=== PATIENT | male | born 1965 | race African-American/Black ===

== ENCOUNTER 2018-12-07 02:56 | Inpatient (IN) | payer MEDICAID ==
[~2018-12-07] VITALS: Ht 172.7 cm; Wt 92.7 kg
[2018-12-07] MEDS ORDERED: ONDANSETRON HCL 4MG/2ML INJ IV STA (03:09)
[2018-12-07] MEDS ORDERED: SODIUM CHLORIDE 0.9% 1,000 ML IV ONE (03:09)
[2018-12-07] MEDS ORDERED: MAGNESIUM/ALUMINUM HYDROXIDE/SIMETHICONE 30ML UDC PO STA (03:09)
[2018-12-07 03:27] LABS: BASOPHILS % 0.4 % (0.0-2.0); EOSINOPHILS % 2.7 % (0.0-5.0); HEMATOCRIT. 33.9 % (42.0-52.0); HEMOGLOBIN. 11.3 g/dL (14.0-18.0); LYMPHOCYTES % 33.4 % (20.0-50.0); MEAN CORPUSCULAR HEMOGLOBIN 27.8 pg (28.0-32.0); MEAN CORPUSCULAR VOLUME 83.9 fL (80.0-94.0); MEAN PLATELET VOLUME 7.3 fl (7.4-10.4); MONOCYTES % 7.2 % (2.0-8.0); NEUTROPHILS % 56.3 % (40.0-76.0); PLATELET 178 x1000/uL (130-400); RED BLOOD CELL COUNT 4.04 mill/uL (4.7-6.1); RED CELL DISTRIBUTION WIDTH 17.4 % (11.6-14.6)
[2018-12-07 03:34] LABS: CHLORIDE 104 mEq/L (98-107)
[2018-12-07 03:36] LABS: INR 1.1; PROTHROMBIN TIME 11.4 sec (9.6-11.0)
[2018-12-07 03:38] LABS: ETHANOL BLOOD 232 mg/dL
[2018-12-07] MEDS ORDERED: KETOROLAC 15MG/ML VIAL IV ONE (03:45)
[2018-12-07] MEDS ORDERED: LORAZEPAM 1MG TABLET PO ONE (04:45)
[2018-12-07] MEDS ORDERED: MORPHINE SULFATE 4 MG/ML CPJ (NOT FOR IM USE) IV ONE (05:15)
[2018-12-07] MEDS ORDERED: DEXT 5%/0.45% NACL 1000ML 1,000 ML IV SCH ×2 (07:21→09:30)
[2018-12-07] MEDS ORDERED: CLONIDINE 0.1MG TABLET PO PRN ×2 (07:30→09:30)
[2018-12-07] MEDS ORDERED: LORAZEPAM 2MG/ML CPJ IV PRN (07:30)
[2018-12-07] MEDS ORDERED: ONDANSETRON HCL 4MG/2ML INJ IV PRN (07:30)
[2018-12-07] MEDS ORDERED: ACETAMINOPHEN 325MG TABLET PO PRN (07:30)
[2018-12-07 07:39] LABS: CLARITY URINE CLEAR (CLEAR); COLOR URINE YELLOW (YELLOW); KETONES URINE NEGATIVE (NEGATIVE); LEUKOCYTE ESTERASE URINE NEGATIVE (NEGATIVE); NITRITE URINE NEGATIVE (NEGATIVE); OCCULT BLOOD URINE NEGATIVE (NEGATIVE); PROTEIN URINE NEGATIVE (NEGATIVE); SPECIFIC GRAVITY URINE 1.017 (1.005-1.030); UROBILINOGEN URINE 0.2 E.U./dL (0.2-1.0)
[2018-12-07] MEDS ORDERED: FOLIC ACID 1MG TABLET PO SCH (09:00)
[2018-12-07] MEDS ORDERED: MULTIVITAMINS,THER W-MINERALS TABLET PO SCH (09:00)
[2018-12-07] MEDS ORDERED: THIAMINE HCL 100MG TABLET PO SCH (09:00)
[2018-12-07] MEDS: HYDROMORPHONE HCL/PF 2MG/ML CPJ IV PRN ×3 (10:11→17:28)
[2018-12-07] MEDS: THIAMINE HCL 100MG TABLET PO SCH (10:12)
[2018-12-07] MEDS: FOLIC ACID 1MG TABLET PO SCH (10:12)
[2018-12-07] MEDS: MULTIVITAMINS,THER W-MINERALS TABLET PO SCH (10:12)
[2018-12-07 10:31] VITALS: BP 124/89
[2018-12-07 11:00] VITALS: BP_SYST 124; BP_SYST 143; BP_DIAS 64; BP_DIAS 92
[2018-12-07] MEDS: DEXT 5%/0.45% NACL KCL 20MEQ/L 1,000 ML IV SCH (11:47)
[2018-12-07 12:24] VITALS: BP 143/64
[2018-12-07] MEDS: CHLORDIAZEPOXIDE 25MG CAPSULE PO SCH ×2 (13:21→23:59)
[2018-12-07] MEDS: ACETAMINOPHEN 325MG TABLET PO PRN (15:33)
[2018-12-07 15:51] VITALS: BP 115/84
[2018-12-07 20:00] VITALS: BP 125/74
[2018-12-07] MEDS ORDERED: POTASSIUM CHLORIDE 20MEQ TABLET SR PO NR (20:45)
[2018-12-07] MEDS: ONDANSETRON HCL 4MG/2ML INJ IV PRN (22:20)
[2018-12-07] MEDS: LORAZEPAM 2MG/ML CPJ IV PRN (22:21)
[2018-12-08] VITALS: BP 123/71
[2018-12-08] MEDS: DEXT 5%/0.45% NACL KCL 20MEQ/L 1,000 ML IV SCH ×2 (02:01→13:26)
[2018-12-08] MEDS: HYDROMORPHONE HCL/PF 2MG/ML CPJ IV PRN ×4 (02:31→15:48)
[2018-12-08 04:00] VITALS: BP 123/85
[2018-12-08] MEDS: CHLORDIAZEPOXIDE 25MG CAPSULE PO SCH ×3 (06:33→22:22)
[2018-12-08 08:00] VITALS: BP 113/91
[2018-12-08] MEDS: THIAMINE HCL 100MG TABLET PO SCH (08:05)
[2018-12-08] MEDS: FOLIC ACID 1MG TABLET PO SCH (08:05)
[2018-12-08] MEDS: MULTIVITAMINS,THER W-MINERALS TABLET PO SCH (08:05)
[2018-12-08] MEDS ORDERED: ASPI-986 MT (09:17)
[2018-12-08] MEDS: ACETAMINOPHEN 325MG TABLET PO PRN (10:23)
[2018-12-08 12:00] VITALS: BP 125/96
[2018-12-08 12:42] LABS: CHLORIDE 101 mEq/L (98-107)
[2018-12-08] MEDS ORDERED: DEXT 5%/0.45% NACL 1000ML 1,000 ML IV SCH (13:33)
[2018-12-08] MEDS ORDERED: SODIUM POLYSTYRENE SULFONATE 15 G/60 ML BOT PO NR (14:30)
[2018-12-08 16:45] VITALS: BP 125/82
[2018-12-08 19:54] VITALS: BP 112/82
[2018-12-09] VITALS (8 sets, daily range): BP systolic 113–138; BP diastolic 67–99
[2018-12-09] MEDS: ONDANSETRON HCL 4MG/2ML INJ IV PRN ×2 (01:31→12:49)
[2018-12-09] MEDS: HYDROMORPHONE HCL/PF 2MG/ML CPJ IV PRN ×2 (04:43→12:49)
[2018-12-09] MEDS: CHLORDIAZEPOXIDE 25MG CAPSULE PO SCH ×3 (07:20→21:56)
[2018-12-09] MEDS: FOLIC ACID 1MG TABLET PO SCH (08:51)
[2018-12-09] MEDS: THIAMINE HCL 100MG TABLET PO SCH (08:52)
[2018-12-09] MEDS: MULTIVITAMINS,THER W-MINERALS TABLET PO SCH (08:52)
[2018-12-09] MEDS: SODIUM CHLORIDE 0.9% 1,000 ML IV SCH ×2 (12:37→18:45)
[2018-12-09] MEDS ORDERED: CHLORPROMAZINE HCL 25 MG TABLET PO PRN (12:45)
[2018-12-09] MEDS ORDERED: FUROSEMIDE 20MG/2ML VIAL IVP NR (17:15)
[2018-12-09 19:17] LABS: HEMOGLOBIN. 11.7 g/dL (14.0-18.0); MEAN CORPUSCULAR HEMOGLOBIN 28.1 pg (28.0-32.0); MEAN CORPUSCULAR VOLUME 83.9 fL (80.0-94.0); MEAN PLATELET VOLUME 8.3 fl (7.4-10.4); PLATELET 116 x1000/uL (130-400); RED BLOOD CELL COUNT 4.18 mill/uL (4.7-6.1); RED CELL DISTRIBUTION WIDTH 17.9 % (11.6-14.6)
[2018-12-09 20:47] LABS: NUCLEATED RED BLOOD CELLS 2 /100 WBC
[2018-12-09 20:49] LABS: PLATELET ESTIMATE SLIGHTLY DECREASED
[2018-12-09 20:56] LABS: BG BASE EXCESS -4.6 mmol/L (-2.0-2.0); BG CARBOXYHEMOGLOBIN 1.1 % (0.5-1.5); BG DEOXYHEMOGLOBIN 10.2 % (0.0-5.0); BG FRACTION INSPIRED OXYGEN 21; BG HCO3 ACT 18.9 mmol/L (22.0-26.0); BG METHEMOGLOBIN 0.3 % (0.0-1.5); BG OXYGEN SATURATION 89.7 % (92.0-98.5); BG OXYHEMOGLOBIN 88.4 % (94.0-97.0); BG PCO2 30.4 mmHg (35.0-45.0); BG PH 7.412 (7.350-7.450); BG PO2 56.9 mmHg (75.0-100.0); BG SAMPLE SITE RIGHT RADIAL; BG TOTAL HEMOGLOBIN 12.2 g/dL (12.0-18.0); BG VENT MODE ROOM AIR
[2018-12-09] MEDS ORDERED: FOLIC ACID 1 MG, THIAMINE HCL 100 MG, MVI, ADULT NO.1 10 ML in DEXTROSE 5% WATER 1,000 ML IV ONE ×4 (21:00)
[2018-12-10] VITALS (25 sets, daily range): BP systolic 110–154; BP diastolic 65–104
[2018-12-10] MEDS: HYDROMORPHONE HCL/PF 2MG/ML CPJ IV PRN ×5 (03:40→21:55)
[2018-12-10 05:50] LABS: HEMATOCRIT. 30.6 % (42.0-52.0); HEMOGLOBIN. 10.3 g/dL (14.0-18.0); MEAN CORPUSCULAR HEMOGLOBIN 28.3 pg (28.0-32.0); MEAN CORPUSCULAR VOLUME 84.2 fL (80.0-94.0); MEAN PLATELET VOLUME 8.6 fl (7.4-10.4); PLATELET 115 x1000/uL (130-400); RED BLOOD CELL COUNT 3.64 mill/uL (4.7-6.1); RED CELL DISTRIBUTION WIDTH 17.3 % (11.6-14.6)
[2018-12-10] MEDS: CHLORDIAZEPOXIDE 25MG CAPSULE PO SCH ×3 (06:52→21:51)
[2018-12-10 06:57] LABS: CHLORIDE 101 mEq/L (98-107)
[2018-12-10] MEDS ORDERED: POTASSIUM CHLORIDE 20MEQ/PACKET PO NR (09:45)
[2018-12-10] MEDS ORDERED: POTASSIUM CHLORIDE 20MEQ TABLET SR PO NR (09:45)
[2018-12-10] MEDS ORDERED: POTASSIUM CHLORIDE INJ 40 MEQ in DEXT 5% WATER 250 ML IV ONE (09:45)
[2018-12-10 09:59] LABS: PHOSPHORUS 2.1 mg/dL (2.5-4.9)
[2018-12-10] MEDS: ONDANSETRON HCL 4MG/2ML INJ IV PRN (10:20)
[2018-12-10] MEDS: SODIUM CHLORIDE 0.9% 1,000 ML IV SCH ×2 (10:20→11:30)
[2018-12-10] MEDS: MULTIVITAMINS,THER W-MINERALS TABLET PO SCH (10:21)
[2018-12-10] MEDS: FOLIC ACID 1MG TABLET PO SCH (10:21)
[2018-12-10] MEDS: THIAMINE HCL 100MG TABLET PO SCH (10:21)
[2018-12-10] MEDS ORDERED: POTASSIUM-SODIUM PHOSPHATE POWDER PACKET PO SCH (12:00)
[2018-12-10 13:26] LABS: NUCLEATED RED BLOOD CELLS 1 /100 WBC; PLATELET ESTIMATE SLIGHTLY DECREASED
[2018-12-10] MEDS: LORAZEPAM 2MG/ML CPJ IV PRN (16:25)
[2018-12-10] MEDS: NICOTINE 21MG PATCH TD SCH (18:57)
[2018-12-11] VITALS (22 sets, daily range): BP systolic 110–143; BP diastolic 64–98
[2018-12-11] MEDS: SODIUM CHLORIDE 0.9% 1,000 ML IV SCH ×2 (01:03→14:11)
[2018-12-11] MEDS: HYDROMORPHONE HCL/PF 2MG/ML CPJ IV PRN ×2 (03:13→11:10)
[2018-12-11] MEDS: CHLORDIAZEPOXIDE 25MG CAPSULE PO SCH ×3 (06:21→21:24)
[2018-12-11 06:52] LABS: HEMATOCRIT. 30.4 % (42.0-52.0); HEMOGLOBIN. 10.1 g/dL (14.0-18.0); MEAN CORPUSCULAR HEMOGLOBIN 28.4 pg (28.0-32.0); MEAN CORPUSCULAR VOLUME 85.6 fL (80.0-94.0); MEAN PLATELET VOLUME 7.9 fl (7.4-10.4); PLATELET 127 x1000/uL (130-400); RED BLOOD CELL COUNT 3.55 mill/uL (4.7-6.1); RED CELL DISTRIBUTION WIDTH 17.6 % (11.6-14.6)
[2018-12-11 07:46] LABS: CHLORIDE 104 mEq/L (98-107)
[2018-12-11 08:01] LABS: PHOSPHORUS 2.2 mg/dL (2.5-4.9)
[2018-12-11 08:04] LABS: NUCLEATED RED BLOOD CELLS 2 /100 WBC
[2018-12-11 08:05] LABS: PLATELET ESTIMATE NORMAL
[2018-12-11] MEDS: NICOTINE 21MG PATCH TD SCH (09:00)
[2018-12-11] MEDS: THIAMINE HCL 100MG TABLET PO SCH (09:50)
[2018-12-11] MEDS: MULTIVITAMINS,THER W-MINERALS TABLET PO SCH (09:50)
[2018-12-11] MEDS: FOLIC ACID 1MG TABLET PO SCH (09:50)
[2018-12-11] MEDS ORDERED: NITROGLYCERIN 0.4MG TABLET SL SL ONE (12:57)
[2018-12-11] MEDS ORDERED: NITROGLYCERIN 0.4MG TABLET SL SL PRN (13:00)
[2018-12-11] MEDS: POTASSIUM-SODIUM PHOSPHATE POWDER PACKET PO SCH (16:58)
[2018-12-11] MEDS: TRAMADOL 50MG TABLET PO PRN (22:50)
[2018-12-11] MEDS: LORAZEPAM 2MG/ML CPJ IV PRN (23:49)
[2018-12-12] VITALS (18 sets, daily range): BP systolic 118–154; BP diastolic 76–90
[2018-12-12] MEDS: SODIUM CHLORIDE 0.9% 1,000 ML IV SCH (03:47)
[2018-12-12] MEDS: CHLORDIAZEPOXIDE 25MG CAPSULE PO SCH ×3 (06:08→21:29)
[2018-12-12 06:21] LABS: HEMATOCRIT. 26.6 % (42.0-52.0); HEMOGLOBIN. 8.9 g/dL (14.0-18.0); MEAN CORPUSCULAR HEMOGLOBIN 28.5 pg (28.0-32.0); MEAN CORPUSCULAR VOLUME 85.1 fL (80.0-94.0); MEAN PLATELET VOLUME 7.7 fl (7.4-10.4); PLATELET 150 x1000/uL (130-400); RED BLOOD CELL COUNT 3.13 mill/uL (4.7-6.1); RED CELL DISTRIBUTION WIDTH 18.1 % (11.6-14.6)
[2018-12-12 06:52] LABS: CHLORIDE 105 mEq/L (98-107)
[2018-12-12] MEDS ORDERED: POTASSIUM CHLORIDE 20MEQ TABLET SR PO SCH (07:30)
[2018-12-12] MEDS: MULTIVITAMINS,THER W-MINERALS TABLET PO SCH (07:47)
[2018-12-12] MEDS: THIAMINE HCL 100MG TABLET PO SCH (07:47)
[2018-12-12] MEDS: POTASSIUM-SODIUM PHOSPHATE POWDER PACKET PO SCH ×2 (07:47→17:32)
[2018-12-12] MEDS: FOLIC ACID 1MG TABLET PO SCH (07:47)
[2018-12-12] MEDS: TRAMADOL 50MG TABLET PO PRN ×2 (07:48→21:09)
[2018-12-12] MEDS: NICOTINE 21MG PATCH TD SCH (08:10)
[2018-12-12 10:39] LABS: PLATELET ESTIMATE NORMAL
[2018-12-13] VITALS: BP 129/81
[2018-12-13 04:00] VITALS: BP 125/82
[2018-12-13] MEDS: TRAMADOL 50MG TABLET PO PRN ×2 (04:19→08:31)
[2018-12-13 07:46] LABS: HEMATOCRIT. 26.6 % (42.0-52.0); HEMOGLOBIN. 9.1 g/dL (14.0-18.0); MEAN CORPUSCULAR HEMOGLOBIN 29.5 pg (28.0-32.0); MEAN CORPUSCULAR VOLUME 85.8 fL (80.0-94.0); MEAN PLATELET VOLUME 7.9 fl (7.4-10.4); PLATELET 211 x1000/uL (130-400); RED CELL DISTRIBUTION WIDTH 18.8 % (11.6-14.6)
[2018-12-13 07:57] LABS: CHLORIDE 104 mEq/L (98-107)
[2018-12-13 08:00] VITALS: BP 112/77
[2018-12-13 08:02] LABS: PHOSPHORUS 2.9 mg/dL (2.5-4.9)
[2018-12-13] MEDS: CHLORDIAZEPOXIDE 25MG CAPSULE PO SCH (08:30)
[2018-12-13] MEDS: NICOTINE 21MG PATCH TD SCH (08:30)
[2018-12-13] MEDS: THIAMINE HCL 100MG TABLET PO SCH (08:30)
[2018-12-13] MEDS: POTASSIUM-SODIUM PHOSPHATE POWDER PACKET PO SCH ×2 (08:30→16:11)
[2018-12-13] MEDS: MULTIVITAMINS,THER W-MINERALS TABLET PO SCH (08:31)
[2018-12-13] MEDS: FOLIC ACID 1MG TABLET PO SCH (08:31)
[2018-12-13 10:01] LABS: PLATELET ESTIMATE NORMAL
[2018-12-13 12:00] VITALS: BP 122/80
[2018-12-13] MEDS: HYDROCODONE/APAP 7.5/325MG 1 TAB TABLET PO PRN ×2 (12:25→18:25)
[2018-12-13 16:00] VITALS: BP_SYST 111; BP_SYST 122; BP_DIAS 71; BP_DIAS 80
[2018-12-13] MEDS: ONDANSETRON HCL 4MG/2ML INJ IV PRN (18:22)
[2018-12-13 20:00] VITALS: BP 107/81
[2018-12-13] MEDS ORDERED: CHLORDIAZEPOXIDE 25MG CAPSULE PO SCH (22:00)
[2018-12-14] VITALS: BP 132/83
[2018-12-14] MEDS: HYDROCODONE/ACETAMINOPHEN 5/325MG TABLET PO PRN ×5 (01:32→22:06)
[2018-12-14] MEDS: IPRATROPIUM/ALBUTEROL 0.5-3(2.5)MG/3ML NEB HHN PRN ×6 (01:35→21:15)
[2018-12-14 04:00] VITALS: BP 114/75
[2018-12-14 08:00] VITALS: BP 119/80
[2018-12-14] MEDS: GUAIFENESIN/DM 600MG/30MG ER TAB 12HR PO SCH ×2 (08:58→22:01)
[2018-12-14] MEDS: NICOTINE 21MG PATCH TD SCH (08:59)
[2018-12-14] MEDS: POTASSIUM-SODIUM PHOSPHATE POWDER PACKET PO SCH ×2 (08:59→16:17)
[2018-12-14] MEDS: CHLORDIAZEPOXIDE 25MG CAPSULE PO SCH (08:59)
[2018-12-14] MEDS: FOLIC ACID 1MG TABLET PO SCH (08:59)
[2018-12-14] MEDS: THIAMINE HCL 100MG TABLET PO SCH (08:59)
[2018-12-14] MEDS: MULTIVITAMINS,THER W-MINERALS TABLET PO SCH (08:59)
[2018-12-14 12:00] VITALS: BP 117/81
[2018-12-14 16:00] VITALS: BP 125/76
[2018-12-14] MEDS: ACETAMINOPHEN 325MG TABLET PO PRN (16:17)
[2018-12-14 20:00] VITALS: BP 118/77
[2018-12-15] VITALS: BP 103/68
[2018-12-15] MEDS: IPRATROPIUM/ALBUTEROL 0.5-3(2.5)MG/3ML NEB HHN PRN ×2 (02:09→06:48)
[2018-12-15] MEDS: HYDROCODONE/ACETAMINOPHEN 5/325MG TABLET PO PRN ×4 (02:24→19:49)
[2018-12-15 04:00] VITALS: BP 117/72
[2018-12-15 08:00] VITALS: BP 115/78
[2018-12-15] MEDS: MULTIVITAMINS,THER W-MINERALS TABLET PO SCH (08:04)
[2018-12-15] MEDS: POTASSIUM-SODIUM PHOSPHATE POWDER PACKET PO SCH ×2 (08:04→17:37)
[2018-12-15] MEDS: CHLORDIAZEPOXIDE 25MG CAPSULE PO SCH (08:04)
[2018-12-15] MEDS: GUAIFENESIN/DM 600MG/30MG ER TAB 12HR PO SCH ×2 (08:04→20:37)
[2018-12-15] MEDS: NICOTINE 21MG PATCH TD SCH (08:04)
[2018-12-15] MEDS: FOLIC ACID 1MG TABLET PO SCH (08:04)
[2018-12-15] MEDS: THIAMINE HCL 100MG TABLET PO SCH (08:05)
[2018-12-15 12:28] VITALS: BP 107/73
[2018-12-15 15:51] VITALS: BP 119/80
[2018-12-15 20:00] VITALS: BP 118/79
[2018-12-16] VITALS: BP 116/78
[2018-12-16] MEDS: HYDROCODONE/APAP 7.5/325MG 1 TAB TABLET PO PRN ×2 (00:27→09:40)
[2018-12-16] MEDS: IPRATROPIUM/ALBUTEROL 0.5-3(2.5)MG/3ML NEB HHN PRN ×2 (01:06→05:12)
[2018-12-16 04:00] VITALS: BP 123/77
[2018-12-16 08:00] VITALS: BP 129/77
[2018-12-16] MEDS: THIAMINE HCL 100MG TABLET PO SCH (08:22)
[2018-12-16] MEDS: POTASSIUM-SODIUM PHOSPHATE POWDER PACKET PO SCH ×2 (08:22→17:30)
[2018-12-16] MEDS: MULTIVITAMINS,THER W-MINERALS TABLET PO SCH (08:22)
[2018-12-16] MEDS: FOLIC ACID 1MG TABLET PO SCH (08:22)
[2018-12-16] MEDS: CHLORDIAZEPOXIDE 25MG CAPSULE PO SCH (08:22)
[2018-12-16] MEDS: GUAIFENESIN/DM 600MG/30MG ER TAB 12HR PO SCH ×2 (08:22→20:14)
[2018-12-16] MEDS: NICOTINE 21MG PATCH TD SCH (08:24)
[2018-12-16 12:00] VITALS: BP 114/73
[2018-12-16] MEDS: HYDROCODONE/ACETAMINOPHEN 5/325MG TABLET PO PRN ×2 (13:59→20:14)
[2018-12-16] MEDS: IPRATROPIUM/ALBUTEROL 0.5-3(2.5)MG/3ML NEB HHN SCH ×2 (16:42→21:25)
[2018-12-16] MEDS: LACTULOSE 20G/30ML UDC PO SCH (17:30)
[2018-12-16 20:00] VITALS: BP 120/93
[2018-12-17] VITALS: BP_SYST 113; BP_SYST 123; BP_DIAS 72; BP_DIAS 79
[2018-12-17] MEDS: HYDROCODONE/APAP 7.5/325MG 1 TAB TABLET PO PRN ×2 (00:19→06:49)
[2018-12-17] MEDS: IPRATROPIUM/ALBUTEROL 0.5-3(2.5)MG/3ML NEB HHN SCH ×6 (01:45→20:25)
[2018-12-17 04:00] VITALS: BP 118/80
[2018-12-17 08:00] VITALS: BP 118/79
[2018-12-17] MEDS: LACTULOSE 20G/30ML UDC PO SCH ×2 (09:17→17:05)
[2018-12-17] MEDS: POTASSIUM-SODIUM PHOSPHATE POWDER PACKET PO SCH ×2 (09:17→17:07)
[2018-12-17] MEDS: MULTIVITAMINS,THER W-MINERALS TABLET PO SCH (09:18)
[2018-12-17] MEDS: FOLIC ACID 1MG TABLET PO SCH (09:18)
[2018-12-17] MEDS: CHLORDIAZEPOXIDE 25MG CAPSULE PO SCH (09:18)
[2018-12-17] MEDS: NICOTINE 21MG PATCH TD SCH (09:18)
[2018-12-17] MEDS: POLYETHYLENE GLYCOL 3350 (17GM) 1 DOSE PACK PO SCH (09:18)
[2018-12-17] MEDS: GUAIFENESIN/DM 600MG/30MG ER TAB 12HR PO SCH ×2 (09:18→21:13)
[2018-12-17] MEDS: THIAMINE HCL 100MG TABLET PO SCH (09:18)
[2018-12-17] MEDS ORDERED: BENZONATATE 100MG CAPSULE PO PRN (11:00)
[2018-12-17 12:00] VITALS: BP 114/82
[2018-12-17] MEDS: ACETAMINOPHEN 325MG TABLET PO PRN (15:43)
[2018-12-17] MEDS ORDERED: NA PHOS,M-B/NA PHOS,DI-BA ENEMA 118ML PR PRN (15:45)
[2018-12-17 16:00] VITALS: BP 123/85
[2018-12-17 20:00] VITALS: BP 106/79
[2018-12-17] MEDS: HYDROCODONE/ACETAMINOPHEN 5/325MG TABLET PO PRN (22:07)
[2018-12-17] MEDS: ONDANSETRON HCL 4MG/2ML INJ IV PRN (22:08)
[2018-12-18] VITALS: BP 126/80
[2018-12-18] MEDS: HYDROCODONE/ACETAMINOPHEN 5/325MG TABLET PO PRN ×3 (02:10→18:58)
[2018-12-18] MEDS: IPRATROPIUM/ALBUTEROL 0.5-3(2.5)MG/3ML NEB HHN SCH ×6 (02:27→19:58)
[2018-12-18 04:00] VITALS: BP 106/68
[2018-12-18] MEDS: ACETAMINOPHEN 325MG TABLET PO PRN (06:53)
[2018-12-18 08:00] VITALS: BP 109/70
[2018-12-18] MEDS: FOLIC ACID 1MG TABLET PO SCH (08:42)
[2018-12-18] MEDS: MULTIVITAMINS,THER W-MINERALS TABLET PO SCH (08:42)
[2018-12-18] MEDS: CHLORDIAZEPOXIDE 25MG CAPSULE PO SCH (08:42)
[2018-12-18] MEDS: THIAMINE HCL 100MG TABLET PO SCH (08:42)
[2018-12-18] MEDS: NICOTINE 21MG PATCH TD SCH (08:43)
[2018-12-18] MEDS: LACTULOSE 20G/30ML UDC PO SCH ×2 (08:43→17:26)
[2018-12-18] MEDS: POTASSIUM-SODIUM PHOSPHATE POWDER PACKET PO SCH ×2 (08:43→17:26)
[2018-12-18] MEDS: GUAIFENESIN/DM 600MG/30MG ER TAB 12HR PO SCH (09:01)
[2018-12-18] MEDS: POLYETHYLENE GLYCOL 3350 (17GM) 1 DOSE PACK PO SCH (09:01)
[2018-12-18] MEDS: HYDROCODONE/APAP 7.5/325MG 1 TAB TABLET PO PRN (09:04)
[2018-12-18 12:00] VITALS: BP 106/77
[2018-12-18 16:00] VITALS: BP 116/55
[2018-12-18 20:00] VITALS: BP 111/83
[2018-12-19] VITALS: BP 124/85
[2018-12-19] MEDS: GUAIFENESIN/DM 600MG/30MG ER TAB 12HR PO SCH ×3 (00:04→20:57)
[2018-12-19] MEDS: IPRATROPIUM/ALBUTEROL 0.5-3(2.5)MG/3ML NEB HHN SCH ×6 (00:16→21:54)
[2018-12-19] MEDS: ACETAMINOPHEN 325MG TABLET PO PRN ×4 (01:34→20:15)
[2018-12-19 04:00] VITALS: BP 108/76
[2018-12-19 08:00] VITALS: BP 122/84
[2018-12-19] MEDS: LACTULOSE 20G/30ML UDC PO SCH ×2 (08:08→17:00)
[2018-12-19] MEDS: POLYETHYLENE GLYCOL 3350 (17GM) 1 DOSE PACK PO SCH (08:08)
[2018-12-19] MEDS: THIAMINE HCL 100MG TABLET PO SCH (08:09)
[2018-12-19] MEDS: MULTIVITAMINS,THER W-MINERALS TABLET PO SCH (08:09)
[2018-12-19] MEDS: FOLIC ACID 1MG TABLET PO SCH (08:09)
[2018-12-19] MEDS: NICOTINE 21MG PATCH TD SCH (08:14)
[2018-12-19] MEDS: POTASSIUM-SODIUM PHOSPHATE POWDER PACKET PO SCH ×2 (08:14→17:24)
[2018-12-19 12:00] VITALS: BP 113/81
[2018-12-19 16:00] VITALS: BP 121/82
[2018-12-19 20:00] VITALS: BP 138/83
[2018-12-20] VITALS: BP 119/98
[2018-12-20] MEDS: HYDROCODONE/ACETAMINOPHEN 5/325MG TABLET PO PRN ×5 (00:14→22:27)
[2018-12-20] MEDS: ZOLPIDEM TARTRATE 5MG TABLET PO PRN ×2 (00:23→20:12)
[2018-12-20] MEDS: IPRATROPIUM/ALBUTEROL 0.5-3(2.5)MG/3ML NEB HHN SCH ×6 (01:31→20:49)
[2018-12-20 04:00] VITALS: BP 108/83
[2018-12-20] MEDS: ACETAMINOPHEN 325MG TABLET PO PRN ×3 (05:35→20:13)
[2018-12-20 08:00] VITALS: BP 123/78
[2018-12-20] MEDS: LACTULOSE 20G/30ML UDC PO SCH ×2 (09:00→17:40)
[2018-12-20] MEDS: THIAMINE HCL 100MG TABLET PO SCH (09:15)
[2018-12-20] MEDS: GUAIFENESIN/DM 600MG/30MG ER TAB 12HR PO SCH ×2 (09:15→20:12)
[2018-12-20] MEDS: FOLIC ACID 1MG TABLET PO SCH (09:15)
[2018-12-20] MEDS: MULTIVITAMINS,THER W-MINERALS TABLET PO SCH (09:15)
[2018-12-20] MEDS: POTASSIUM-SODIUM PHOSPHATE POWDER PACKET PO SCH ×2 (09:16→17:40)
[2018-12-20] MEDS: POLYETHYLENE GLYCOL 3350 (17GM) 1 DOSE PACK PO SCH (09:16)
[2018-12-20] MEDS: NICOTINE 21MG PATCH TD SCH (09:16)
[2018-12-20 11:14] LABS: BASOPHILS % 0.6 % (0.0-2.0); EOSINOPHILS % 0.4 % (0.0-5.0); HEMOGLOBIN. 7.6 g/dL (14.0-18.0); LYMPHOCYTES % 11.9 % (20.0-50.0); MEAN CORPUSCULAR HEMOGLOBIN 27.9 pg (28.0-32.0); MEAN CORPUSCULAR VOLUME 84.9 fL (80.0-94.0); MEAN PLATELET VOLUME 7.2 fl (7.4-10.4); MONOCYTES % 10.2 % (2.0-8.0); NEUTROPHILS % 76.9 % (40.0-76.0); PLATELET 742 x1000/uL (130-400); RED BLOOD CELL COUNT 2.71 mill/uL (4.7-6.1)
[2018-12-20 11:20] LABS: CHLORIDE 100 mEq/L (98-107)
[2018-12-20 16:00] VITALS: BP 120/81
[2018-12-20 20:27] VITALS: BP 128/88
[2018-12-21 00:22] VITALS: BP 132/83
[2018-12-21] MEDS: IPRATROPIUM/ALBUTEROL 0.5-3(2.5)MG/3ML NEB HHN SCH ×6 (00:54→21:32)
[2018-12-21 04:00] VITALS: BP 120/82
[2018-12-21] MEDS: ACETAMINOPHEN 325MG TABLET PO PRN (04:41)
[2018-12-21] MEDS: HYDROCODONE/ACETAMINOPHEN 5/325MG TABLET PO PRN ×4 (04:51→20:52)
[2018-12-21 08:00] VITALS: BP 106/76
[2018-12-21] MEDS: NICOTINE 21MG PATCH TD SCH (08:54)
[2018-12-21] MEDS: GUAIFENESIN/DM 600MG/30MG ER TAB 12HR PO SCH ×2 (08:54→20:52)
[2018-12-21] MEDS: MULTIVITAMINS,THER W-MINERALS TABLET PO SCH (08:54)
[2018-12-21] MEDS: FOLIC ACID 1MG TABLET PO SCH (08:54)
[2018-12-21] MEDS: POTASSIUM-SODIUM PHOSPHATE POWDER PACKET PO SCH ×2 (08:54→17:00)
[2018-12-21] MEDS: THIAMINE HCL 100MG TABLET PO SCH (08:54)
[2018-12-21] MEDS: POLYETHYLENE GLYCOL 3350 (17GM) 1 DOSE PACK PO SCH (08:55)
[2018-12-21] MEDS: LACTULOSE 20G/30ML UDC PO SCH ×2 (09:00→17:00)
[2018-12-21 12:00] VITALS: BP 113/78
[2018-12-21 16:00] VITALS: BP 133/83
[2018-12-21 19:57] VITALS: BP 124/85
[2018-12-21 22:05] LABS: TOTAL IRON BINDING CAPACITY 102 ug/dL (250-450)
[2018-12-22] MEDS: IPRATROPIUM/ALBUTEROL 0.5-3(2.5)MG/3ML NEB HHN SCH ×3 (01:13→08:26)
[2018-12-22] MEDS: HYDROCODONE/ACETAMINOPHEN 5/325MG TABLET PO PRN ×2 (02:55→08:45)
[2018-12-22 07:12] LABS: BASOPHILS % 0.3 % (0.0-2.0); EOSINOPHILS % 0.7 % (0.0-5.0); HEMOGLOBIN. 7.9 g/dL (14.0-18.0); LYMPHOCYTES % 13.3 % (20.0-50.0); MEAN CORPUSCULAR HEMOGLOBIN 28.2 pg (28.0-32.0); MEAN CORPUSCULAR VOLUME 85.2 fL (80.0-94.0); MEAN PLATELET VOLUME 7.2 fl (7.4-10.4); MONOCYTES % 11.5 % (2.0-8.0); NEUTROPHILS % 74.2 % (40.0-76.0); PLATELET 844 x1000/uL (130-400); RED BLOOD CELL COUNT 2.81 mill/uL (4.7-6.1); RED CELL DISTRIBUTION WIDTH 18.1 % (11.6-14.6)
[2018-12-22 07:22] LABS: CHLORIDE 102 mEq/L (98-107)
[2018-12-22 07:51] VITALS: BP 117/82
[2018-12-22 08:00] VITALS: BP 117/82
[2018-12-22] MEDS: LACTULOSE 20G/30ML UDC PO SCH (08:31)
[2018-12-22] MEDS: GUAIFENESIN/DM 600MG/30MG ER TAB 12HR PO SCH (08:44)
[2018-12-22 08:45] VITALS: BP 117/82
[2018-12-22] MEDS: NICOTINE 21MG PATCH TD SCH (08:45)
[2018-12-22] MEDS: POTASSIUM-SODIUM PHOSPHATE POWDER PACKET PO SCH ×2 (08:45→08:48)
[2018-12-22] MEDS: MULTIVITAMINS,THER W-MINERALS TABLET PO SCH (08:45)
[2018-12-22] MEDS: THIAMINE HCL 100MG TABLET PO SCH (08:45)
[2018-12-22] MEDS: POLYETHYLENE GLYCOL 3350 (17GM) 1 DOSE PACK PO SCH ×2 (08:45→08:48)
[2018-12-22] MEDS: FOLIC ACID 1MG TABLET PO SCH (08:45)
== END 2018-12-22 10:27 | disposition home or self-care (01) | DRG 282 ==
LOC: ER 02:56 → 6EST 05:40 → EDBEDREQ 05:44 → EDBEDREQTM 05:44 → SUPCPDRO 07:21 → ENRESERV 08:14 → ER 09:17 → 6WST 12-08 16:20 → 3WST 12-09 18:11 → 6EST 12-12 22:30
PROVIDERS: ADMIT Hospitalist; ATTEND Hospitalist
DX: K85.90 Acute pancreatitis without necrosis or infection, unspecified (principal); N17.9 Acute kidney failure, unspecified; K70.10 Alcoholic hepatitis without ascites; F10.229 Alcohol dependence with intoxication, unspecified; Y90.7 Blood alcohol level of 200-239 mg/100 ml; F10.239 Alcohol dependence with withdrawal, unspecified; E87.6 Hypokalemia; E87.1 Hypo-osmolality and hyponatremia; I12.9 Hypertensive chronic kidney disease with stage 1 through stage 4 chronic kidney disease, or unspecified chronic kidney disease; E86.9 Volume depletion, unspecified; D64.9 Anemia, unspecified; F17.200 Nicotine dependence, unspecified, uncomplicated; I25.10 Atherosclerotic heart disease of native coronary artery without angina pectoris; Z79.82 Long term (current) use of aspirin; Z59.0 Homelessness
CPT/HCPCS: 36415; 36600; 71045; 74018; 74176; 76770; 80048; 80320; 82140; 82375; 82805; 83540; 83550; 83735; 84100; 84443; 94640; 96361; 96374; 96375; 97116; 97163; 97530; 99285; J1170; J1885; J1940; J2060; J2270; J2405; J3411; J3490; J7030; J7070; J7620; Q0161; G0480

== ENCOUNTER 2020-02-21 01:32 | Emergency (ER) | payer MEDICAID ==
[~2020-02-21] VITALS: Ht 170.2 cm; Wt 82.0 kg
[~2020-02-21 01:32] MED LIST: ASPI-986 MT
[2020-02-21 02:36] VITALS: BP 109/74
== END 2020-02-21 02:42 | disposition home or self-care (01) ==
LOC: ER 01:41
DX: F10.129 Alcohol abuse with intoxication, unspecified (principal); Y90.0 Blood alcohol level of less than 20 mg/100 ml; I25.10 Atherosclerotic heart disease of native coronary artery without angina pectoris; I10 Essential (primary) hypertension; Z79.82 Long term (current) use of aspirin
CPT/HCPCS: 82962; 99283